=== PATIENT | female | born 1935 | race Two or more races ===

== ENCOUNTER 2021-10-08 07:41 | Outpatient (CLI) | payer OTHER ==
[~2021-10-08 07:41] MED LIST: ATIVAN2 MG; SEROQUEL50 MG; SYNTHROID125 MCG; TRAMADOL HCL50 MG PO
== END 2021-10-08 07:43 | disposition home or self-care (01) ==
LOC: NUCLEAR 07:41
PROVIDERS: ATTEND Internal Medicine Cardiovascular Disease
DX: I10 Essential (primary) hypertension (principal); Z91.018 Allergy to other foods
CPT/HCPCS: 78452; 93017; A9500; J0153